=== PATIENT | female | born 1950 | race Caucasian/White ===

== ENCOUNTER 2019-12-22 08:27 | Outpatient (CLI) | payer MEDICARE, OTHER, SELFPAY ==
--- NOTE | 2019-12-22 08:38 | MM_ITS ---
WS: [id number] SCREENING DIGITAL MAMMOGRAM WITH CAD HISTORY: SCREENING COMPARISON: 03/27/2018 03/04/2017 Bilateral CC and MLO views submitted. Computer aided detection analyzed. Breast composition: There are scattered areas of fibroglandular density. No suspicious masses, microc alcifications or architectural distortion. MM/[place] [id number] IMPRESSION: BI-RADS: 1-Negative FOLLOW UP: 1 Year Follow-up
== END 2019-12-22 08:28 | disposition home or self-care (01) ==
LOC: RADSHAW 08:36
PROVIDERS: PCP Family Medicine; Visit Provider Family Medicine
DX: Z12.31 Encounter for screening mammogram for malignant neoplasm of breast (principal)
CPT/HCPCS: 77067

== ENCOUNTER 2020-03-29 08:18 | Observation (INO) | payer MEDICARE, OTHER, SELFPAY ==
[2020-03-23 10:50] VITALS: BMI 23.3
--- NOTE | 2020-03-23 11:03 | ECG_ITS ---
[facility] Test Date: 2020-03-23 Pat Name: Kristy Shearer Department: Room: Gender: Female Dining Room Cashier: : 1950 Requested By: Jessenia Lyons Order Number: [id number] Reading MD: TALIA CARDENAS Measurements Intervals [place] Rate: 58 P: 79 WY: 156 QRS: 20 QRSD: 70 T: 54 QT: 386 QTc: 380 Interpretive Statements SINUS BRADYCARDIA WITH SINUS ARRHYTHMIA LOW QRS VOLTAGE IN PRECORDIAL LEADS [QRS DEFLECTION < 1.0 mV IN CHEST LEADS] No previous ECG available for comparison Electronically Signed On 03-24-2020 15:31:59 INVESTOR RELATIONS MANAGER by TALIA CARDENAS [id number]
--- NOTE | 2020-03-23 11:28 | ANES.PREANE2 ---
Pre-Anesthetic Assessment Pre-Anesthetic Assessment: Height/Weight: Height 1.57 m Weight 58.06 kg Preop Diagnosis: Rectocele Proposed Procedure: Operation Date: 03/29/20 07:00 Proposed Procedures p Posterior Repair Posterior Colporrhaphy 14890 N81.6(Not Applicable) - Michael Xavier MD Familial anesthetic complications: respiratory distress after her epidural for labor (thinks it could've been duramorph) Social: Social History: No alcohol and No tobacco Exam: Pre-Anes Outpt Exam: alert, oriented x 3, clear to auscultation bilaterally and regular rate & rhythm Airway: Cervical ROM: WNL MP: 1 Dentition: Full GI: GI: GERD Anesthetic Plan: ASA status: 1 Anesthesia: General Risk of > 500 ml blood loss (7ml/kg in children): No PFSH Anesthesia PFSH: Medical History Raynaud's disease Surgical History H/O section X3 History of appendectomy (~2015) Performed by Dr. Carmona at [facility] in [place], [place] S/P dilation and curettage X2 for miscarriages Family History Sister Breast cancer Mother Alzheimer disease Diabetes Hypertension Social History (Updated 03/22/20 @ 09:36 by Michael Xavier MD) Smoking and tobacco status: never smoked Alcohol intake: current Alcohol intake frequency: holidays/special occasions only Substance/Drug Use: never Data Anesthesia Cardiac Studies: No Data to Display
[2020-03-23 21:31] LABS: Basophils % 0.9 %; Eosinophils # 0.2 10^3/uL (0.0-0.8); Eosinophils % 3.6 %; Hematocrit 42.4 % (37.0-47.0); Hemoglobin 13.5 g/dL (11.5-15.3); Lymphocytes # 1.2 10^3/uL (0.8-4.8); Lymphocytes % 28.2 %; Mean Corpuscular HGB Conc 31.8 g/dL (30.0-36.0); Mean Corpuscular Volume 94.2 fL (81-99); Mean Platelet Volume 10.7 fL (7.4-10.4); Monocytes # 0.4 10^3/uL (0.2-0.9); Monocytes % 9.1 %; Neutrophils # 2.54 10^3/uL (1.8-7.7); Nucleated Red Blood Cells % 0 %; Platelet Count 243 10^3/cmm (130-400); Red Cell Distribution Width 13.1 % (12.1-15.1); White Blood Count 4.4 10^3/uL (4.0-10.0)
[2020-03-29] VITALS (12 sets, daily range): BP systolic 111–142; BP diastolic 65–86; PULSE 59–79; RESP 15–18; TEMP 36.2–36.6; O2SAT 96–99
[2020-03-29] MEDS: ketorolac 30 mg/mL INJ IVP (06:30)
[2020-03-29] MEDS: phenazopyridine 100 mg Tablet 200 MG PO ×2 (06:30→16:05)
[2020-03-29] MEDS: gabapentin 300 mg Capsule PO (06:30)
[2020-03-29] MEDS: sodium chloride 0.9% 1,000 ML 30 ML IV (06:31)
--- NOTE | 2020-03-29 06:32 | P.ANESUD_ITS ---
Pre-Anesthetic Update Pre-Anesthetic Assessment: Date of Surgery/Procedure: 03/29/20 Preop Winter gnosis: Rectocele Proposed Procedure: Operation Date: 03/29/20 07:00 Proposed Procedures p Posterior Repair Posterior Colporrhaphy 42067 N81.6(Not Applicable) - Michael Xavier MD Any changes to Pre-Anesthetic Assessment?: No Last Intake: Intake Last Liquid Date 03/28/20 Last Liquid Time 18:00 Last Solid Date 03/28/20 Last Solid Time 18:00 Vitals: Temperature 97.2 F L 03/29/20 06:07 Pulse Rate 67 03/29/20 06:07 Respiratory Rate 18 03/29/20 06:07 Blood Pressure 123/77 03/29/20 06:07 Blood Pressure Aleida n 92 03/29/20 06:07 Pulse Oximetry 99 03/29/20 06:07 Oxygen Delivery Me thod 03/29/20 06:07 Exam: Pre-Anes Outpt Exam: alert, oriented x 3, clear to auscultation bilaterally and regular rate & rhythm Cardiac Studies: No Data to Display
--- NOTE | 2020-03-29 06:39 | P.HPUD_ITS ---
Surgery/Procedure H&P Update DATE OF PROCEDURE: March 29, 2020 DATE H&P PERFORMED: 03/21/20 H&P UPDATE INFORMATION: I have reviewed H&P completed within last 30 days, I have examined patient prior to procedure, No changes to prior documentation and H&P is in [facility] EMR on date indicated PREOP DIAGNOSIS: Rectocele PLANNED PROCEDURE: Operation Date: 03/29/20 07:00 Proposed Procedures p Posterior Repair Posterior Colporrhaphy 63202 N81.6(Not Applicable) - Michael Xavier MD
[2020-03-29] MEDS: vasopressin 20 unit/mL INJ INJECTION (08:13)
--- NOTE | 2020-03-29 08:31 | PM.OP ---
Operative Report Date of procedure: March 29, 2020 Pre-op Diagnosis: Rectocele Post-op Diagnosis: Rectocele Procedure Done: Posterior colporrhaphy Specimens removed/disposition: None Surgeon: Michael Xavier Castables Worker: None Anesthesia: General Estimated blood loss (mL): 10 IV fluids (mL): 1,000 Urine output (mL): 200 Complications: None Findings: First to second-degree uterine prolapse, first to second-degree cystocele, and second to third-degree rectocele under anesthesia. No enterocele identified. Brief History: Patient is a 69-year-old female 5, para 3-0-2-3 who is postmenopausal. She presented to the office on 02/15/2020 as a referral from Dr. Ade Sharma due to a rectocele. She reports having a bulge at the vaginal opening that becomes irritated with wiping. Denies any pain or discomfort with it otherwise. She denied any significant urinary symptoms. On exam in the office she was found to have a first-degree cystocele with a first-degree uterine prolapse and a second to third-degree rectocele. No significant hypermobility to the urethra was noted. Since her main issues was related to the rectocele, patient wished to proceed to a repair of the rectocele. She has been scheduled for a posterior colporrhaphy. Procedure: Patient was taken to the operating room where general anesthesia was obtained. She was prepped and draped in usual sterile fashion dorsal supine position with legs in Eugenio style stirrups. Sequential compression boots were placed prior to starting the case. Exam under anesthesia was performed. She was noted to have a first to second-degree uterine prolapse with first to second-degree cystocele and second to third-degree rectocele under anesthesia. Edgar catheter was inserted. She was noted to have a tight vaginal opening. As a result a perineorrhaphy was not performed. The perineum was injected with dilute Pitressin solution. The posterior vaginal wall was injected with dilute Pitressin solution. Using a knife, a midline incision was made in the perineum. The vaginal mucosa was then opened in the midline to approximately two thirds of the distance between the perineum and the apex of the vagina. The vaginal mucosa was sharply and bluntly dissected off of the rectovaginal fascia. This was carried from the perineum to the level of the cervix posteriorly. No enterocele was identified. The rectovaginal fascia was identified and had been pulled away from its superior attachments and partially down the right side. Using 2-0 Vicryl suture, stitches were placed into the corners of the upper vagina incorporating the uterosacral ligaments into the stitch at each corner. Additional sutures were placed across the top of the vagina. The stitches were then secured to the rectovaginal fascia and then tied. This resupported the posterior wall well. A defect was still present in the upper right side of the posterior wall. Interrupted stitches of 2-0 Vicryl suture were placed into this closing the defect. Patient was noted to have good support of the posterior wall at completion of this. Excess vaginal mucosa was removed. The vaginal wall was closed with 3-0 Vicryl suture in a running locking fashion. A transition stitch was placed once the hymenal ring was reached. The perineum was reapproximated in the midline with 3-0 Vicryl suture. Perineal skin was reapproximated with 3-0 Vicryl suture in a subcuticular fashion. Vagina was packed with 1 inch Nu Gauze. Patient tolerated procedures well. Sponge needle and instrument counts were correct. Drains: Edgar catheter Condition: Patient transferred to recovery room in satisfactory condition.
--- NOTE | 2020-03-29 08:41 | SUR.PHASEI ---
pt awake alert talkative asking pertinent questions about surgery bilat SCDS in place vila to DD drainage with small amt yellow urine to tubing and bag, vaginal packing in place
--- NOTE | 2020-03-29 09:28 | ANE.PACU2 ---
Inpatient post-anesthesia follow up: Airway intact: Yes Vital signs: Temperature 97.8 F Pulse Rate 68 Respiratory Rate 17 Blood Pressure 122/79 Pulse Oximetry 97 Oxygen Delivery Me thod Room Air Oxygen Flow Rate 8 Fraction of Inspir ed Oxygen Hydration adequate: Yes Nausea and vomiting: No Pain level: 3 Mental status: Baseline
[2020-03-29] MEDS: dextrose 5%-lactated ringers 1,000 ML 125 ML IV (09:57)
--- NOTE | 2020-03-29 12:45 | PC.NURSE ---
pt ambulated in hallway from room and down to surgery doors and back x2laps. Pt tolerated well and denies any dizziness. Pt back to bed once completed ambulating.
[2020-03-29] MEDS: ibuprofen 800 mg tablet PO (16:04)
--- NOTE | 2020-03-29 18:24 | PC.NURSE ---
Vaginal packing removed by Dr. Xavier. Vaginal packing intact.
--- NOTE | 2020-03-29 18:44 | PM.DCS ---
Discharge Providers Date of Admission: 03/29/20 08:18 Date of Discharge: March 29, 2020 Attending Provider at Admission: Michael Xavier MD Attending Provider at Discharge: Michael Xavier MD Primary Care Provider: Ade Sharma MD Diagnoses at Discharge Discharge Diagnosis (1) Rectocele: Status: Acute Reason for Visit Reason for Visit: posterior colporrhaphy Hospital Course Hospital Course Patient is a 69-year-old female, 5, para 3-0-2-3 who is postmenopausal. She presented to the office with complaints of suspected rectocele. She had had a bulge at the vaginal opening that was irritated with wiping. She was denying any pain or discomfort otherwise. She denied significant urinary symptoms. On exam, she had been found to have a first-degree uterine prolapse, first-degree cystocele, and a second to third-degree rectocele. Treatment options were discussed with her and she wanted to proceed with repair of the rectocele. Patient presented to the hospital where a posterior colporrhaphy was performed. She tolerated the surgery well. By the evening of day of surgery, she was reporting doing well. She had required no pain medications beyond ibuprofen since the surgery. She denied lightheadedness or dizziness with ambulation. She denied shortness of breath or chest pains. She was tolerating a regular diet without nausea or vomiting. Physical exam: See below. Plan: Vaginal packing was removed and there was minimal blood on the packing. Edgar catheter was removed. Patient is being discharged home. Discharge instructions were discussed with her. She is to follow-up in the office in approximately 2 weeks. She is to resume her usual home medications EXCEPT for the Yuvafem which will be started after her 2-week appointment. Physical Exam Const: COMMON NORMALS: no acute distress, average body habitus, alert and well nourished GENERAL APPEARANCE: well developed ORIENTATION/CONSCIOUSNESS: Yes oriented to person, Yes oriented to place and Yes oriented to time GI: COMMON NORMALS: Soft to palpation, non-tender, No hepatosplenomegaly present and no masses AUSCULTATION: Yes normoactive bowel sounds PALPATION: Yes Soft to palpation and Yes No hepatosplenomegaly present : OTHER: Vaginal packing was removed with minimal blood noted on the packing. Neuro: SENSORIUM/ORIENTATION: Yes alert, Yes oriented to person, Yes oriented to place and Yes oriented to time Psych: COMMON NORMALS: normal affect MOOD & AFFECT: Yes euthymic mood Urinary Catheter Management^: Edgar: Cath Placed During This Visit: yes, but has since been removed by the nurse Reason for Continuing Indwelling Catheter: Decision to DC Catheter Urinary Catheter Date of Insertion: 03/29/20 Urinary Catheter Time of Insertion: 07:30 Date Urinary Catheter Removed: 03/29/20 Time Urinary Catheter Discontinued: 18:23 Discharge Data Data Completed and Pending: Pending at discharge Category Date Time Status Hemagram Timed Lab 03/30/20 05:00 Uncollected Retype for Diann s ABO/Rh Routine Lab 03/29/20 07:23 Ordered Urine Culture Rou keya Lab 03/29/20 06:42 Received Labs from last 24 hours 03/29/20 06:25 Blood Type B Positive Rho(D) Type Positive Antibody Screen Negative Vitals: Last Vital Signs Temp 97.5 F L 03/29/20 16:09 Pulse 69 03/29/20 16:09 Resp 17 03/29/20 16:09 BP 135/70 03/29/20 16:09 Pulse Ox 98 03/29/20 14:30 Discharge Plan Discharge Patient Disposition: Home Condition: Stable Prescriptions: Continued sertraline 25 mg tablet 25 mg PO DAILY RF: 0 multivitamin Tablet 1 tab PO DAILY RF: 0 ascorbic acid (vitamin C) 500 mg tablet 250 mg PO DAILY RF: 0 calcium carbonate-vitamin D3 600 mg(1,500mg) -400 unit capsule 2 cap PO DAILY RF: 0 glao-tpqnga-waxzjzqs-D3-C-Mn 500-400-667 mg-mg-unit capsule 2 cap PO DAILY RF: 0 alprazolam [Xanax] 0.25 mg tablet 0.25 mg PO DAILY PRN (Reason: Anxiety) RF: 0 hydrocortisone 2.5 % ointment 1 applic TOPICAL BID PRN (Reason: Itching) RF: 0 ketoconazole 2 % cream 1 applic topical BID PRN (Reason: Itching) RF: 0 tacrolimus [Protopic] 0.03 % ointment 1 applic TOPICAL BID PRN (Reason: Itching) RF: 0 Held estradiol [Yuvafem] 10 mcg tablet 10 mcg VAGINAL .COMPLEX 30 Days Qty: 8 RF: 0 Hold Instructions: Resume on 04/11/20. Do not restart until after your 2-week appointment on 04/11/2020 Discharge Orders: Discharge Order (Routine); Ordered 03/29/20 Ordered By: Michael Xavier Referrals: Michael Xavier MD [Physician] - 04/11/20 8:00 am (Your 2 week follow up appointment is scheduled for 04/11/[address] Xavier. Your 6 week follow up appointment is scheduled for 05/09/[address] Xavier.) Discharge Diet: Regular Discharge Activity: Limit activity as instructed Patient Instructions: Rectocele (GEN), Posterior Vaginal Repair (DC), OB Discharge Report, OB Food/Drug Interaction Guide Discharge Attestations Time Spent in Discharge Care*: less than 30 min Quality Metrics Clinical Quality Measures During this hospital stay, did patient experience: None Coding Level of Care Code Acute Electric Screw Driver Operator for Chg Fwd Diagnoses Rectocele N81.6
== END 2020-03-29 19:25 | disposition home or self-care (01) ==
LOC: OBGYN 08:19
PROVIDERS: Admitting Provider Obstetrics & Gynecology; PCP Family Medicine; Visit Provider Obstetrics & Gynecology
PROC: (CPT 57250; principal; 2020-03-29 07:00)
DX: N81.6 Rectocele (principal); I73.00 Raynaud's syndrome without gangrene
CPT/HCPCS: 57250; 12345; 36415; 85025; 86850; 86900; 87086; 93005; 96374; G0378; J0131; J0690; J1100; J1885; J2405; J2704; J3010; J3490; J7030

== ENCOUNTER 2021-01-31 09:15 | Outpatient (CLI) | payer MEDICARE, OTHER, SELFPAY ==
--- NOTE | 2021-01-31 09:20 | MM_ITS ---
WS: [id number] Bilateral screening digital mammogram, 01/31/2021 Clinical Data: SCREENING Comparison: 12/22/2019, 03/27/2018, 03/04/2017, 02/28/2016, 01/26/2015, 12/17/2013, 11/17/2012, 10/17/2011, 10/06/2010, 07/18/2009, 04/26/2008, 04/14/2007. Findings: The breast parenchymal pattern shows fibroglandular tissue No spiculated masses or clustered calcific ations are seen. There are no secondary signs of carcinoma. There are mole markers on the right breas t. MM/[place] [id number] Impression: 1. Negative bilateral mammogram unchanged. 2. Recommend annual screening mammograms. BIRADS: 1-Negative FOLLOW UP: 1 Year Follow-up The CAD truckload checker was used.
== END 2021-01-31 09:16 | disposition home or self-care (01) ==
LOC: RADSHAW 09:19
PROVIDERS: PCP Family Medicine; Visit Provider Family Medicine
DX: Z12.31 Encounter for screening mammogram for malignant neoplasm of breast (principal)
CPT/HCPCS: 77067

== ENCOUNTER 2022-03-02 08:40 | Outpatient (CLI) | payer MEDICARE, OTHER, SELFPAY ==
--- NOTE | 2022-03-02 08:47 | MM_ITS ---
WS: [id number] Bilateral screening 3D tomosynthesis digital mammogram, 03/02/2022 Clinical Data: SCREENING Comparison: 01/31/2021, 12/22/2019, 03/27/2018, 03/04/2017, 02/28/2016, 01/26/2015, 12/17/2013, 11/17/2012, 10/17/2011, 10/06/2010, 07/18/2009, 04/26/2008, 04/14/2007. Findings: The breast parenchymal pattern shows fibroglandular tissue. No spiculated masses or clustered calcifi cations are seen. There are no secondary signs of carcinoma. MM/[place] [id number] Impression: 1. Negative bilateral mammogram unchanged. 2. Recommend annual screening mammograms. BIRADS: 1-Negative FOLLOW UP: 1 Year Follow-up The CAD mechanical car checker was used.
== END 2022-03-02 08:41 | disposition home or self-care (01) ==
LOC: RAD 08:41
PROVIDERS: PCP Family Medicine; Visit Provider Family Medicine
DX: Z12.31 Encounter for screening mammogram for malignant neoplasm of breast (principal)
CPT/HCPCS: 77063; 77067

== ENCOUNTER 2023-03-13 10:49 | Outpatient (CLI) | payer MEDICARE, OTHER, SELFPAY ==
--- NOTE | 2023-03-13 10:56 | MM_ITS ---
WS: [id number] VIEWS: MLO and CC views both breasts. 3D digital tomosynthesis is also included in this exam. Comparison made with prior exam of 04/14/2007, 04/26/2008, 07/18/2009, 10/06/2010, 10/17/2011, 11/17/2012 , 12/17/2013, 01/26/2015, 02/28/2016, 03/04/2017, 03/27/2018, 12/22/2019, 01/31/2021, 03/02/2022.. Findings: There was no sign of mass, architectural distortion or suspicious calcification in either breast. The re are scattered areas of fibroglandular density Impression: MM/[place] [id number] BI-RADS: 1-Negative FOLLOW-UP: 1 Year Follow-up This mammogram was also analyzed by the Computer Aided Detection System R2 Imag e Hospice/Home Health Aide.
== END 2023-03-13 10:50 | disposition home or self-care (01) ==
LOC: RAD 10:50
PROVIDERS: PCP Family Medicine; Visit Provider Family Medicine
DX: Z12.31 Encounter for screening mammogram for malignant neoplasm of breast (principal)
CPT/HCPCS: 77063; 77067

== ENCOUNTER 2023-05-10 12:51 | Outpatient (CLI) | payer MEDICARE, OTHER, SELFPAY ==
--- NOTE | 2023-05-10 13:00 | XR_ITS ---
WS: [id number] SCREENING DEXA SCAN [employer] CLINICAL INFORMATION: ASYMPTOMATIC MENOPAUSAL STATE COMPARISON: 2017 FINDINGS: The L2-L4 bone mineral density measures 0.960. This corresponds to a T score score of -2.0 and Z scor e of -0.1. Left femoral neck bone mineral density measures 0.765 g/cm2. This corresponds to a T score of -1.9 an d Z score of -0.2. Right femoral neck bone mineral density measures 0.768 g/cm2. This corresponds to a T score -1.9of an d Z score of -0.2. Mean femoral neck bone mineral density measures 0.767 g/cm2. This corresponds to a T score of -1.9 an d Z score of -0.2. IMPRESSION: Osteopenia lumbar spine. Osteopenia femoral necks. Patient's FRAX calculated 10 year probability for major osteoporotic fracture is 16.8% and osteoporot ic hip fracture is 5.2%. Bone mineral density lumbar spine decreased -4.1% Bone mineral density femoral necks decreased -11.1%
== END 2023-05-10 12:52 | disposition home or self-care (01) ==
PROVIDERS: PCP Family Medicine; Visit Provider Nurse Practitioner Family
DX: Z13.820 Encounter for screening for osteoporosis (principal); Z78.0 Asymptomatic menopausal state; M85.89 Other specified disorders of bone density and structure, multiple sites
CPT/HCPCS: 77080

== ENCOUNTER 2024-06-11 10:59 | Outpatient (CLI) | payer MEDICARE, OTHER, SELFPAY ==
--- NOTE | 2024-06-11 11:13 | XR_ITS ---
WS: [id number] XR hand LT min 3V* [id number] REASON FOR EXAM: hand arthritis FINDINGS: No fracture or focal bone lesion. No periosteal reaction or bone erosion. Significant narrowing of the joint space with mild to moderate subchondral sclerosis and mild osteophytosis in the DIP joints of the fingers. Similar but milder arthropathic change in the PIP joints of the fingers. Similar arthropathic change in the DIP and MCP joint of the thumb. A more significant ar thropathy in the carpal metacarpal joint of the with extensive sclerosis, erosion, and subluxation. XR/XR hand LT min 3V* [id number] IMPRESSION: Osteoarthritis as above.
--- NOTE | 2024-06-11 11:13 | XR_ITS ---
WS: [id number] XR hand RT min 3V* [id number] REASON FOR EXAM: LOCALIZED SWELLING FINDINGS: Moderate to significant narrowing of the joint space with moderate subchondral sclerosis and osteophytosis involving the DIP and PIP joints of the fingers. DIP joints are most severely affected. Similar arthropathic changes seen in the DIP joint of the thumb and the MCP joint of the thumb with associated subluxation. Similar character but more severe arthropathy in the base of the thumb with severe erosion, sclerosis, and subluxation. XR/XR hand RT min 3V* [id number] IMPRESSION: Osteoarthritis as above.
== END 2024-06-11 11:00 | disposition home or self-care (01) ==
LOC: RAD 11:08
PROVIDERS: Visit Provider Nurse Practitioner Family
DX: M19.041 Primary osteoarthritis, right hand (principal); M19.042 Primary osteoarthritis, left hand; R93.6 Abnormal findings on diagnostic imaging of limbs
CPT/HCPCS: 73130

== ENCOUNTER 2024-07-16 10:29 | Outpatient (CLI) | payer MEDICARE, OTHER, SELFPAY ==
--- NOTE | 2024-07-16 10:40 | MM_ITS ---
WS: [id number] BILATERAL SCREENING DIGITAL TOMOSYNTHESIS MAMMOGRAM WITH CAD HISTORY: SCREENING COMPARISON: 03/13/2023, 03/02/2022 Bilateral CC and MLO views with tomosynthesis and synthetic mammography submitted. Computer aided detection analyzed. Breast composition: There are scattered areas of fibroglandular density. No suspicious masses, microcalcifications or architectural distortion. MM/MM scr BI tomosynthesis [id number] IMPRESSION: BI-RADS: 2 - Benign. FOLLOW UP: 1 Year Follow-up
== END 2024-07-16 10:30 | disposition home or self-care (01) ==
LOC: MOBLMAM 10:30
PROVIDERS: PCP Nurse Practitioner Family; Visit Provider Nurse Practitioner Family
DX: Z12.31 Encounter for screening mammogram for malignant neoplasm of breast (principal); R92.323 Mammographic fibroglandular density, bilateral breasts
CPT/HCPCS: 77063; 77067